=== PATIENT | female | born 1945 | race Caucasian/White ===

== ENCOUNTER 2018-09-21 10:18 | Observation (INO) | payer MEDICARE ==
[~2018-09-21] VITALS: Ht 172.7 cm; Wt 56.9 kg
[2018-09-21 10:30] VITALS: BP 167/72
--- NOTE | 2018-09-21 10:30 | NUR ---
PT ARRIVED ON UNIT VIA W/C, PT WAS DIRECT ADMIT FROM DR. SKINNER. PT TRANSFERRED SELF TO BED, STRONG STEADY GAIT. PT A&OX3 ABLE TO MAKE NEEDS KNOWN. PT DENIES CHEST PAIN, OR SOB. PT REPORT HEADACHE, LS CLEAR THROUGHOUT, RESPIRATIONS EVEN/UNLABORED. ABDOMEN DISTENDED, FIRM, TENDER. BSX4 ACTIVE. PT STATES LAST BM 09/11. DIGITAL RECTAL EXAM DONE, NO BM NOTED AT RECTUM. PT STATED SHE HAS A PROTRUSION FROM RECTUM, NONE NOTED BY STAFF AT THIS TIME. DR. SKINNER MADE AWARE.
[2018-09-21 11:10] LABS: HEMATOCRIT 42.9 % (37.0-47.0); HEMOGLOBIN 13.8 g/dl (12.0-16.0); IMMATURE GRANULOCYTES 0.4 % (0.0-5.0); MEAN CELL VOLUME 91.9 fL CALC (80.0-100.0); MEAN CORPUSCULAR HGB 29.6 pG CALC (26.0-32.0); MEAN CORPUSCULAR HGB CONC 32.2 g/L CALC (32.0-36.0); NEUT# 3.56 thou/uL (2.00-7.15); RED BLOOD COUNT 4.67 mill/uL (4.20-5.60); RED CELL DISTRI WIDTH 12.5 % (11.5-15.5)
[2018-09-21 11:29] LABS: ANION GAP 13 (6-22 (CALC)); BUN 9 mg/dL (8-23); BUN/CREATININE RATIO 14 (12-20 (CALC)); CARBON DIOXIDE 29 mmol/l (22-30); CHLORIDE 104 mmol/l (95-108); CREATININE 0.6 mg/dL (0.5-1.0); GFR > 60 ML/MIN (>=60 (CALC)); GFR FOR AFR.AMER. > 60 ML/MIN (>=60 (CALC)); POTASSIUM 3.4 mmol/l (3.5-5.1); SODIUM 143 mmol/l (137-146)
--- NOTE | 2018-09-21 13:00 | NUR ---
DR. SKINNER NOTIFIED, PT WANTS TO WAIT TO SEE HIM BEFORE SHE STARTS TREATMENT.
--- NOTE | 2018-09-21 14:00 | NUR ---
DR. SKINNER AT BEDSIDE FOR ASSESSMENT AND TO DISCUSS PLAN OF CARE.
[2018-09-21 14:27] LABS: URINE BILIRUBIN - DIPSTICK NEGATIVE (NEGATIVE); URINE BLOOD DIPSTICK NEGATIVE (NEGATIVE); URINE COLOR YELLOW; URINE GLUCOSE - DIPSTICK NEGATIVE (NEGATIVE); URINE KETONE NEGATIVE (NEGATIVE); URINE LEUK ESTERASE SMALL (Negative); URINE NITRITE - DIPSTICK NEGATIVE (Negative); URINE PH 6.5 (4.5-8.0); URINE PROTEIN - DIPSTICK NEGATIVE (NEG-TRACE); URINE UROBILINOGEN - DIPSTICK 0.2 E.U./dL (0.2)
[2018-09-21 14:53] LABS: URINE CLARITY CLEAR
[2018-09-21 15:22] LABS: URINE SQUAMOUS EPITHELIAL CELL FEW EPI/hpf (0-FEW)
--- NOTE | 2018-09-21 16:13 | NUR ---
PT RESTING IN BED WITH TV ON. SISTER AT BEDSIDE. PER DR. SKINNER SSE TO START 3-4 HOURS AFTER PT FINISHES MAG CITRATE. CALL LIGHT IN REACH. WILL MONITOR.
[2018-09-21 16:31] VITALS: BP 174/75
--- NOTE | 2018-09-21 17:35 | NUR ---
PT NOTED WITH EXPOSIVE DIARRHEA, PT ASSISTED TO SHOWER, REASSURE AFTER ANXIETY THAT THIS HAPPENS SOMETIMES WITH LAXATIVES. DR. SKINNER NOTIFIED, SSE TO BE HELD TIL AM FOR FURTHER EVALUATION. PT MADE AWARE.
[2018-09-21 19:00] VITALS: BP 148/82
--- NOTE | 2018-09-21 19:00 | NUR ---
REPORT RECEIVED FROM DAY NURSE. PT RESTING IN BED, ALERT AND ORIENTED. ASSISTED PT TO SHOWER PER REQUEST. PT ENCOURAGED TO CALL FOR ASSISTANCE WHEN FININSHED. SAFETY PRECAUTIONS IN PLACE. WILL CONTINUE TO MONITOR.
--- NOTE | 2018-09-22 00:23 | NUR ---
PT RESTING IN BED WITH EYES CLOSED. NO SIGNS OR SYMPTOMS OF DISTRESS. SAFETY PRECAUTIONS IN PLACE WILL CONTINUE TO MONITOR.
[2018-09-22 04:00] VITALS: BP 134/74
--- NOTE | 2018-09-22 04:56 | NUR ---
PT RESTING IN BED WITH EYES CLOSED. RESPIRATIONS EVEN AND UNLABORED ON RA. SAFETY PRECAUTIONS IN PLACE. WILL CONTINUE TO MONITOR.
[2018-09-22 05:09] LABS: HEMOGLOBIN 11.9 g/dl (12.0-16.0); IMMATURE GRANULOCYTES 0.4 % (0.0-5.0); MEAN CELL VOLUME 92.2 fL CALC (80.0-100.0); MEAN CORPUSCULAR HGB 29.8 pG CALC (26.0-32.0); MEAN CORPUSCULAR HGB CONC 32.3 g/L CALC (32.0-36.0); NEUT# 3.52 thou/uL (2.00-7.15); RED BLOOD COUNT 3.99 mill/uL (4.20-5.60); RED CELL DISTRI WIDTH 12.3 % (11.5-15.5)
[2018-09-22 05:18] LABS: HEMATOCRIT 36.8 % (37.0-47.0)
[2018-09-22 05:21] LABS: ALBUMIN 3.5 g/dL (3.2-5.0); ALKALINE PHOSPHATASE 112 u/l (38-126); ANION GAP 11 (6-22 (CALC)); BUN 7 mg/dL (8-23); BUN/CREATININE RATIO 14 (12-20 (CALC)); CARBON DIOXIDE 28 mmol/l (22-30); CHLORIDE 108 mmol/l (95-108); CREATININE 0.5 mg/dL (0.5-1.0); GFR > 60 ML/MIN (>=60 (CALC)); GFR FOR AFR.AMER. > 60 ML/MIN (>=60 (CALC)); POTASSIUM 3.3 mmol/l (3.5-5.1); SGOT/AST 16 u/l (9-36); SODIUM 144 mmol/l (137-146); TOTAL PROTEIN 5.9 g/dL (6.3-8.2)
[2018-09-22 05:40] LABS: BILIRUBIN, TOTAL 0.2 mg/dL (0.0-1.4)
--- NOTE | 2018-09-22 06:45 | NUR ---
RECIEVED REPORT FROM SEB DUGGAN. ASSUMED PT CARE.
[2018-09-22 08:00] VITALS: BP 157/68
--- NOTE | 2018-09-22 08:30 | NUR ---
DR. SKINNER AT BEDSIDE FOR ASSESSMENT AND TO DISCUSS PLAN OF CARE, NEW ORDERS RECIEVED.
--- NOTE | 2018-09-22 09:15 | NUR ---
IV site discontinued, cath intact. No edema , no redness, voices no discomfort.
--- NOTE | 2018-09-22 09:54 | NUR ---
ASSESSMENT DONE. PT STATES FEELING MUCH BETTER THIS AM. IV INFUSING ORDERED, NO S/S OF INFILTRATION AT SITE. CALL LIGHT IN REACH. WILL MONITOR.
--- NOTE | 2018-09-22 10:58 | NUR ---
Discharge instructions given. Patient verbalizes understanding of same. Discharged in stable condition via Wheelchair to Home with friend. All belongings sent with pt.
== END 2018-09-22 10:55 | disposition home or self-care (01) ==
LOC: MS2 10:18
PROVIDERS: ADMIT Internal Medicine Geriatric Medicine; ATTEND Internal Medicine Geriatric Medicine
DX: K56.41 Fecal impaction (principal); I10 Essential (primary) hypertension; E78.5 Hyperlipidemia, unspecified; F41.1 Generalized anxiety disorder; K21.9 Gastro-esophageal reflux disease without esophagitis; K27.9 Peptic ulcer, site unspecified, unspecified as acute or chronic, without hemorrhage or perforation; M81.0 Age-related osteoporosis without current pathological fracture

== ENCOUNTER 2022-08-05 12:05 | Emergency (ER) | payer MEDICARE ==
[~2022-08-05] VITALS: Ht 172.7 cm; Wt 52.2 kg
[2022-08-05 13:13] VITALS: BP 146/67
[2022-08-05] MEDS ORDERED: DICLOFENAC SODI75 M1 PO (14:42)
[2022-08-05] MEDS ORDERED: PREDNISONE10 MG PO (14:58)
[2022-08-05 15:17] VITALS: BP 146/67
== END 2022-08-05 15:35 | disposition home or self-care (01) ==
LOC: ED 12:05
DX: M19.071 Primary osteoarthritis, right ankle and foot (principal); E78.5 Hyperlipidemia, unspecified; F41.9 Anxiety disorder, unspecified; K59.00 Constipation, unspecified; F17.210 Nicotine dependence, cigarettes, uncomplicated